=== PATIENT | male | born 1995 | race Caucasian/White ===

== ENCOUNTER 2020-09-28 14:27 | Emergency (ER) | payer OTHER ==
[~2020-09-28 14:27] MED LIST: PREDNISONE20 MG PO; VIBRAMYCIN100 MG PO
[2020-09-28] MEDS ORDERED: CEPHALEXIN500 M1 PO (15:23)
[2020-09-28] MEDS ORDERED: BACTRIM DS TAB1 EACH PO (15:23)
[2020-09-28] MEDS ORDERED: IBUPROFEN600 MG PO (15:23)
[2020-09-28] MEDS ORDERED: BACTROBAN OINT22 GM EXT (15:23)
== END 2020-09-28 15:28 | disposition home or self-care (01) ==
LOC: ER1 14:27
DX: L02.01 Cutaneous abscess of face (principal); F17.210 Nicotine dependence, cigarettes, uncomplicated
CPT/HCPCS: 10160; 87070; 87077; 87186; 87205; 99283

== ENCOUNTER 2021-02-28 12:49 | Emergency (ER) | payer OTHER ==
[~2021-02-28 12:49] MED LIST changes: +BACTRIM DS TAB1 EACH PO; +BACTROBAN OINT22 GM EXT; +CEPHALEXIN500 M1 PO; +IBUPROFEN600 MG PO
== END 2021-02-28 14:35 | disposition home or self-care (01) ==
LOC: ER1 12:49
DX: U07.1 COVID-19 (principal); F17.200 Nicotine dependence, unspecified, uncomplicated
CPT/HCPCS: 99284; U0002

== ENCOUNTER 2021-04-06 15:19 | Emergency (ER) | payer OTHER ==
[2021-04-06 16:09] LABS: HEMOGLOBIN 17.8 gm/dl (14.0-17.5); RED BLOOD COUNT 5.46 M/UL (4.20-5.50); WHITE BLOOD COUNT 8.5 K/UL (4.5-11.0)
[2021-04-06 16:43] LABS: BUN/CREATININE RATIO 7 (0-10)
[2021-04-06] MEDS ORDERED: CEPHALEXIN500 MG PO (17:35)
[2021-04-06] MEDS ORDERED: BACTRIM DS TAB1 EACH PO (17:35)
== END 2021-04-06 18:20 | disposition home or self-care (01) ==
LOC: ER1 15:19
PROVIDERS: Physician Assistant
DX: L02.811 Cutaneous abscess of head [any part, except face] (principal); R59.0 Localized enlarged lymph nodes
CPT/HCPCS: 71045; 80053; 82550; 82553; 83874; 84484; 85025; 85379; 85652; 93005; 96374; 99285; J1885